=== PATIENT | male | born 1935 | race Caucasian/White ===

== ENCOUNTER 2017-04-10 02:21 | Emergency (ER) | payer MEDICARE ==
[~2017-04-10] VITALS: Ht 175.2 cm; Wt 49.9 kg
[~2017-04-10 02:21] MED LIST: AMLODIPINE BESYL5 MG PO; AMLODIPINE10 MG PO; ASPIRIN CHEWABL81 MG PO; ASPIRIN81 M1 PO; BACLOFEN PO; BETHANECHOL PO; COUMADIN4 M2 PO; COUMADIN5 M2 PO; DAYPRO600 M1 PO; EFFEXOR XR150 M1 PO; HYDRALAZINE PO; JANTOVEN1 MG PO; K-TAB20 MEQ PO; LIPITOR80 MG PO; LOPRESSOR50 MG PO; MULTI VITAMINS1 TAB PO; MULTIVITAMINS1 EACH PO; NORCO 5-325 TA1 EACH PO; NORVASC10 MG PO; PLAVIX75 MG PO; PRAVACHOL40 MG PO; PROBIOTIC250 MG PO; SIMVASTATIN20 MG PO; TAMSULOSIN HYD0.4 MG PO; TYLENOL325 M1 PO; ULTRAM50 MG PO; VICODIN 500 MG-1 TAB PO; VITAMIN D32000 UNIT PO; ZOLOFT50 MG PO
[2017-04-10 02:37] LABS: BASO % 0.6 % (0.0-1.0); EOS # 0.2 10*3/uL (0.0-0.4); EOS % 2.1 % (1.0-4.0); HEMATOCRIT 31.6 % (42.0-52.0); HEMOGLOBIN 9.5 g/dl (14.0-18.0); LYMPH # 2.2 10*3/uL (1.3-4.4); LYMPH % 30.8 % (27.0-41.0); MEAN CELL VOLUME 79.8 fl (80.0-94.0); MEAN CORPUSCULAR HGB CONC 30.1 g/dl (33.0-37.0); MEAN PLATELET VOLUME 11.7 fl (9.6-12.3); MONO # 0.8 10*3/uL (0.1-1.0); MONO % 10.9 % (3.0-9.0); NEUT # 3.9 10*3/uL (2.3-7.9); NEUT % 55.5 % (47.0-73.0); PLATELET COUNT AUTOMATED 265 10*3/uL (130-400); RED BLOOD COUNT 3.96 10*6/uL (4.50-5.90); RED CELL DISTRI WIDTH 16.4 % (0-14.5); WHITE BLOOD COUNT 7.1 10*3/uL (4.8-10.8)
[2017-04-10 02:47] LABS: ACT PARTIAL THROMBO TIME 24.4 SECONDS (20.8-31.5); INTERNATIONAL NORM RATIO 1.1 (2.0-3.5)
[2017-04-10 02:53] LABS: ALBUMIN 2.6 gm/dl (3.1-4.5); CREATININE 1.73 mg/dL (0.70-1.30); POTASSIUM 3.4 mmol/L (3.5-5.1); TOTAL PROTEIN 6.1 gm/dL (6.4-8.2)
[2017-04-10 02:59] LABS: TROPONIN I 0.065 ng/ml (<0.045)
[2017-04-10 07:41] VITALS: BP 130/72
== END 2017-04-10 08:14 | disposition short-term general hospital (02) ==
LOC: ED 02:21
PROVIDERS: Student in an Organized Health Care Education/Training Program
DX: K43.9 Ventral hernia without obstruction or gangrene (principal); R19.09 Other intra-abdominal and pelvic swelling, mass and lump; F17.200 Nicotine dependence, unspecified, uncomplicated; N17.9 Acute kidney failure, unspecified; I48.91 Unspecified atrial fibrillation; E78.5 Hyperlipidemia, unspecified; I10 Essential (primary) hypertension; Z86.73 Personal history of transient ischemic attack (TIA), and cerebral infarction without residual deficits; Z87.442 Personal history of urinary calculi; Z90.89 Acquired absence of other organs; Z79.899 Other long term (current) drug therapy; Z79.82 Long term (current) use of aspirin; Z79.01 Long term (current) use of anticoagulants; Z98.890 Other specified postprocedural states